=== PATIENT | male | born 1960 | race Caucasian/White ===

== ENCOUNTER 2019-07-10 13:51 | Inpatient (IN) | payer SELFPAY ==
[~2019-07-10] VITALS: Ht 162.6 cm; Wt 89.8 kg
[2019-07-10 15:29] LABS: HEMATOCRIT. 32.6 % (42.0-52.0); HEMOGLOBIN. 11.3 g/dL (14.0-18.0); MEAN CORPUSCULAR HEMOGLOBIN 33.9 pg (28.0-32.0); MEAN CORPUSCULAR VOLUME 97.7 fL (80.0-94.0); MEAN PLATELET VOLUME 9.7 fl (7.4-10.4); PLATELET 86 x1000/uL (130-400); RED BLOOD CELL COUNT 3.34 mill/uL (4.7-6.1); RED CELL DISTRIBUTION WIDTH 15.6 % (11.6-14.6)
[2019-07-10 15:30] LABS: INR 1.2; PROTHROMBIN TIME 12.7 sec (9.6-11.0)
[2019-07-10 15:34] LABS: CHLORIDE 112 mEq/L (98-107)
[2019-07-10 15:38] LABS: ETHANOL BLOOD < 10 mg/dL
[2019-07-10 16:39] LABS: PLATELET ESTIMATE DECREASED
[2019-07-10 17:19] LABS: CLARITY URINE CLEAR (CLEAR); COLOR URINE DARK YELLOW (YELLOW); KETONES URINE TRACE (NEGATIVE); LEUKOCYTE ESTERASE URINE TRACE (NEGATIVE); NITRITE URINE POSITIVE (NEGATIVE); OCCULT BLOOD URINE TRACE (NEGATIVE); PH URINE 5.5 (4.5-8.0); PROTEIN URINE TRACE (NEGATIVE); SPECIFIC GRAVITY URINE 1.032 (1.005-1.030)
[2019-07-10 17:29] LABS: *AMPHETAMINES SCREEN URINE NEGATIVE (NEGATIVE); *BARBITURATES SCREEN URINE NEGATIVE (NEGATIVE)
[2019-07-10 17:30] LABS: *BENZODIAZEPINES SCREEN URINE NEGATIVE (NEGATIVE); *COCAINE SCREEN URINE NEGATIVE (NEGATIVE); CANNABINOID URINE SCREEN NEGATIVE (NEGATIVE); METHADONE URINE SCREEN NEGATIVE (NEGATIVE); OPIATES URINE SCREEN NEGATIVE (NEGATIVE); PHENCYCLIDINE URINE SCREEN NEGATIVE (NEGATIVE)
[2019-07-10] MEDS ORDERED: LEVOFLOXACIN 750MG PREMIX 150 ML IV SCH (18:15)
[2019-07-10] MEDS ORDERED: SODIUM CHLORIDE 0.9% 1000ML BAG (SEPSIS BOLUS) IV NR (18:15)
[2019-07-10 22:00] VITALS: BP_SYST 157; BP_SYST 162; BP_DIAS 51
[2019-07-10] MEDS ORDERED: LORAZEPAM 2MG/ML CPJ IV PRN (23:45)
[2019-07-11] VITALS: BP 119/69
[2019-07-11] MEDS: CEFTRIAXONE 1 G PREMIX 50 ML IV SCH (02:04)
[2019-07-11 04:00] VITALS: BP 100/51
[2019-07-11 07:05] LABS: HEMATOCRIT. 28.5 % (42.0-52.0); HEMOGLOBIN. 9.9 g/dL (14.0-18.0); MEAN CORPUSCULAR HEMOGLOBIN 34.1 pg (28.0-32.0); MEAN CORPUSCULAR VOLUME 98.3 fL (80.0-94.0); MEAN PLATELET VOLUME 9.7 fl (7.4-10.4); PLATELET 67 x1000/uL (130-400); RED CELL DISTRIBUTION WIDTH 15.5 % (11.6-14.6)
[2019-07-11 07:26] LABS: CHLORIDE 115 mEq/L (98-107)
[2019-07-11 08:00] VITALS: BP 115/61
[2019-07-11] MEDS: SPIRONOLACTONE 50MG TABLET PO SCH (08:45)
[2019-07-11] MEDS: LACTULOSE 20G/30ML UDC PO SCH ×2 (08:45→17:20)
[2019-07-11] MEDS: MULTIVITAMINS,THER W-MINERALS TABLET PO SCH (08:45)
[2019-07-11] MEDS: FUROSEMIDE 40MG TABLET PO SCH (08:45)
[2019-07-11] MEDS: THIAMINE HCL 100MG TABLET PO SCH (08:45)
[2019-07-11] MEDS: FOLIC ACID 1MG TABLET PO SCH (08:45)
[2019-07-11 12:00] VITALS: BP 103/50
[2019-07-11 12:34] LABS: HEPATITIS B SURFACE ANTIGEN NEGATIVE
[2019-07-11 13:04] LABS: HEPATITIS A AB IGM NEGATIVE (NEGATIVE)
[2019-07-11] MEDS ORDERED: SODIUM BICARBONATE 4% (2.4MEQ) 5ML VIAL IV ONE (14:05)
[2019-07-11] MEDS ORDERED: LIDOCAINE HCL 1% 20ML VIAL (Pyxis) INJ ONE (14:05)
[2019-07-11 16:00] VITALS: BP 116/61
[2019-07-11 20:00] VITALS: BP 119/61
[2019-07-11] MEDS: LEVETIRACETAM 500MG TABLET PO SCH (20:41)
[2019-07-12] VITALS: BP 113/65
[2019-07-12] MEDS: CEFTRIAXONE 1 G PREMIX 50 ML IV SCH (01:58)
[2019-07-12 04:00] VITALS: BP 106/59
[2019-07-12 05:16] LABS: PLATELET ESTIMATE SLIGHTL
[2019-07-12 06:38] LABS: BASOPHILS % 1.4 % (0.0-2.0); EOSINOPHILS % 4.5 % (0.0-5.0); HEMATOCRIT. 29.1 % (42.0-52.0); HEMOGLOBIN. 10.1 g/dL (14.0-18.0); LYMPHOCYTES % 22.7 % (20.0-50.0); MEAN CORPUSCULAR VOLUME 97.7 fL (80.0-94.0); MEAN PLATELET VOLUME 9.5 fl (7.4-10.4); MONOCYTES % 13.3 % (2.0-8.0); NEUTROPHILS % 58.1 % (40.0-76.0); PLATELET 69 x1000/uL (130-400); RED BLOOD CELL COUNT 2.98 mill/uL (4.7-6.1); RED CELL DISTRIBUTION WIDTH 14.9 % (11.6-14.6)
[2019-07-12 06:57] LABS: CHLORIDE 111 mEq/L (98-107)
[2019-07-12 08:00] VITALS: BP 119/57
[2019-07-12] MEDS: THIAMINE HCL 100MG TABLET PO SCH (08:40)
[2019-07-12] MEDS: SPIRONOLACTONE 50MG TABLET PO SCH (08:40)
[2019-07-12] MEDS: FOLIC ACID 1MG TABLET PO SCH (08:40)
[2019-07-12] MEDS: LACTULOSE 20G/30ML UDC PO SCH ×2 (08:40→16:13)
[2019-07-12] MEDS: MULTIVITAMINS,THER W-MINERALS TABLET PO SCH (08:40)
[2019-07-12] MEDS: FUROSEMIDE 40MG TABLET PO SCH (08:40)
[2019-07-12] MEDS: LEVETIRACETAM 500MG TABLET PO SCH (08:41)
[2019-07-12 12:06] VITALS: BP 115/59
[2019-07-12 12:55] VITALS: BP 115/59
[2019-07-12] MEDS ORDERED: LEVO500T2 MT (14:46)
== END 2019-07-12 17:10 | disposition home or self-care (01) | DRG 53 ==
LOC: ER 13:51 → 5WST 18:12 → ENRESERV 20:42
PROVIDERS: ADMIT Internal Medicine; ATTEND Internal Medicine
PROC: 0W9G3ZZ Drainage of Peritoneal Cavity, Percutaneous Approach (ICD-10-PCS; principal; 2019-07-11)
DX: G40.909 Epilepsy, unspecified, not intractable, without status epilepticus (principal); E43 Unspecified severe protein-calorie malnutrition; D69.6 Thrombocytopenia, unspecified; E87.8 Other disorders of electrolyte and fluid balance, not elsewhere classified; R18.8 Other ascites; K74.60 Unspecified cirrhosis of liver; D64.9 Anemia, unspecified; N39.0 Urinary tract infection, site not specified; Z68.34 Body mass index [BMI] 34.0-34.9, adult
CPT/HCPCS: 36415; 49083; 76700; 80048; 80076; 80305; 80320; 81003; 82140; 82962; 83605; 84145; 85025; 86705; 86709; 86803; 87340; 93005; 96365; 99285; J0696; J1956; J3490; G0480

== ENCOUNTER 2019-08-02 14:01 | Emergency (ER) | payer MEDICAID, OTHER ==
[~2019-08-02] VITALS: Ht 157.5 cm; Wt 75.0 kg
[~2019-08-02 14:01] MED LIST: LEVO500T2 MT
[2019-08-02 14:10] VITALS: BP 136/56
== END 2019-08-02 15:19 | disposition home or self-care (01) ==
LOC: ER 14:16
DX: E11.9 Type 2 diabetes mellitus without complications (principal); K76.9 Liver disease, unspecified
CPT/HCPCS: 99281

== ENCOUNTER 2019-09-11 10:59 | Emergency (ER) | payer MEDICAID ==
[~2019-09-11] VITALS: Ht 167.6 cm; Wt 89.0 kg
[2019-09-11 13:10] LABS: HEMATOCRIT. 29.3 % (42.0-52.0); HEMOGLOBIN. 10.4 g/dL (14.0-18.0); MEAN CORPUSCULAR HEMOGLOBIN 35.1 pg (28.0-32.0); MEAN CORPUSCULAR VOLUME 98.5 fL (80.0-94.0); MEAN PLATELET VOLUME 9.6 fl (7.4-10.4); PLATELET 84 x1000/uL (130-400); RED BLOOD CELL COUNT 2.97 mill/uL (4.7-6.1)
[2019-09-11 13:12] LABS: CHLORIDE 113 mEq/L (98-107)
[2019-09-11 13:17] LABS: ETHANOL BLOOD < 10 mg/dL
[2019-09-11 13:25] LABS: INR 1.2; PROTHROMBIN TIME 12.8 sec (9.6-11.0)
[2019-09-11] MEDS ORDERED: LIDOCAINE HCL 1% 20ML VIAL (Pyxis) INJ ONE (13:44)
[2019-09-11] MEDS ORDERED: SODIUM BICARBONATE 4% (2.4MEQ) 5ML VIAL IV ONE (13:44)
[2019-09-11 13:48] LABS: PLATELET ESTIMATE DECREASED
[2019-09-11 15:05] VITALS: BP 105/80
== END 2019-09-11 15:28 | disposition home or self-care (01) ==
LOC: ER 10:59
DX: R18.8 Other ascites (principal); K74.60 Unspecified cirrhosis of liver; E11.9 Type 2 diabetes mellitus without complications; I10 Essential (primary) hypertension
CPT/HCPCS: 36415; 49083; 80053; 80320; 85025; 85610; 99285; J3490; Z7610; G0480

== ENCOUNTER 2019-09-25 07:26 | Emergency (ER) | payer MEDICAID ==
[~2019-09-25] VITALS: Ht 162.6 cm; Wt 86.0 kg
[2019-09-25 08:08] LABS: HEMATOCRIT. 30.5 % (42.0-52.0); HEMOGLOBIN. 10.7 g/dL (14.0-18.0); MEAN CORPUSCULAR HEMOGLOBIN 34.7 pg (28.0-32.0); MEAN CORPUSCULAR VOLUME 99.1 fL (80.0-94.0); MEAN PLATELET VOLUME 9.5 fl (7.4-10.4); PLATELET 81 x1000/uL (130-400); RED BLOOD CELL COUNT 3.07 mill/uL (4.7-6.1); RED CELL DISTRIBUTION WIDTH 14.8 % (11.6-14.6)
[2019-09-25 08:17] LABS: INR 1.3; PARTIAL THROMBOPLASTIN TIME 28.9 sec (23.4-31.0); PROTHROMBIN TIME 13.6 sec (9.6-11.0)
[2019-09-25 08:44] LABS: PLATELET ESTIMATE DECREASED
[2019-09-25] MEDS ORDERED: SODIUM BICARBONATE 4% (2.4MEQ) 5ML VIAL IV ONE (09:06)
[2019-09-25] MEDS ORDERED: LIDOCAINE HCL 1% 20ML VIAL (Pyxis) INJ ONE (09:06)
[2019-09-25 10:14] VITALS: BP 103/63
== END 2019-09-25 10:41 | disposition home or self-care (01) ==
LOC: ER 07:26
DX: R10.9 Unspecified abdominal pain (principal); D64.9 Anemia, unspecified; E11.9 Type 2 diabetes mellitus without complications; I10 Essential (primary) hypertension
CPT/HCPCS: 36415; 49083; 85025; 85610; 85730; 99284; J3490; Z7610

== ENCOUNTER 2019-10-04 16:14 | Emergency (ER) | payer MEDICAID ==
[~2019-10-04] VITALS: Ht 167.6 cm; Wt 90.0 kg
[2019-10-04 18:45] VITALS: BP 119/84
== END 2019-10-04 18:50 | disposition home or self-care (01) ==
LOC: ER 16:14
DX: R18.8 Other ascites (principal); E11.9 Type 2 diabetes mellitus without complications
CPT/HCPCS: 99281

== ENCOUNTER 2019-10-05 06:30 | Emergency (ER) | payer MEDICAID ==
[~2019-10-05] VITALS: Ht 162.6 cm; Wt 87.0 kg
[2019-10-05 07:59] LABS: HEMATOCRIT. 29.8 % (42.0-52.0); HEMOGLOBIN. 10.5 g/dL (14.0-18.0); MEAN CORPUSCULAR HEMOGLOBIN 34.6 pg (28.0-32.0); MEAN CORPUSCULAR VOLUME 98.7 fL (80.0-94.0); MEAN PLATELET VOLUME 8.9 fl (7.4-10.4); PLATELET 86 x1000/uL (130-400); RED BLOOD CELL COUNT 3.02 mill/uL (4.7-6.1); RED CELL DISTRIBUTION WIDTH 14.7 % (11.6-14.6)
[2019-10-05 08:01] LABS: CHLORIDE 108 mEq/L (98-107)
[2019-10-05 08:23] LABS: INR 1.3; PROTHROMBIN TIME 13.7 sec (9.6-11.0)
[2019-10-05] MEDS ORDERED: LIDOCAINE HCL 1% 20ML VIAL (Pyxis) INJ ONE (08:56)
[2019-10-05] MEDS ORDERED: SODIUM BICARBONATE 4% (2.4MEQ) 5ML VIAL IV ONE (08:56)
[2019-10-05 09:04] LABS: PLATELET ESTIMATE DECREASED
[2019-10-05 11:45] VITALS: BP 105/72
== END 2019-10-05 12:11 | disposition home or self-care (01) ==
LOC: ER 06:36
DX: R18.8 Other ascites (principal); K76.9 Liver disease, unspecified; I10 Essential (primary) hypertension
CPT/HCPCS: 36415; 49083; 80053; 83690; 85025; 85610; 87070; 87075; 87205; 89050; 99285; J3490; Z7610

== ENCOUNTER 2019-10-26 16:47 | Inpatient (IN) | payer MEDICAID ==
[~2019-10-26] VITALS: Ht 162.6 cm; Wt 73.9 kg
[2019-10-26 18:48] LABS: CLARITY URINE CLEAR (CLEAR); COLOR URINE DK YELLOW (YELLOW); KETONES URINE NEGATIVE (NEGATIVE); LEUKOCYTE ESTERASE URINE NEGATIVE (NEGATIVE); NITRITE URINE NEGATIVE (NEGATIVE); OCCULT BLOOD URINE NEGATIVE (NEGATIVE); PH URINE 5.5 (4.5-8.0); PROTEIN URINE NEGATIVE (NEGATIVE); SPECIFIC GRAVITY URINE 1.012 (1.005-1.030)
[2019-10-26 18:50] LABS: HEMATOCRIT. 28.9 % (42.0-52.0); HEMOGLOBIN. 10.2 g/dL (14.0-18.0); MEAN CORPUSCULAR HEMOGLOBIN 34.2 pg (28.0-32.0); MEAN CORPUSCULAR VOLUME 96.9 fL (80.0-94.0); MEAN PLATELET VOLUME 9.4 fl (7.4-10.4); PLATELET 88 x1000/uL (130-400); RED BLOOD CELL COUNT 2.99 mill/uL (4.7-6.1); RED CELL DISTRIBUTION WIDTH 15.3 % (11.6-14.6)
[2019-10-26 18:52] LABS: CHLORIDE 104 mEq/L (98-107)
[2019-10-26 18:55] LABS: INR 1.2
[2019-10-26 18:56] LABS: ETHANOL BLOOD < 10 mg/dL
[2019-10-26 19:01] LABS: CREATINE KINASE 79 IU/L (39-308)
[2019-10-26 19:04] LABS: *AMPHETAMINES SCREEN URINE NEGATIVE (NEGATIVE); *BARBITURATES SCREEN URINE NEGATIVE (NEGATIVE)
[2019-10-26 19:05] LABS: *BENZODIAZEPINES SCREEN URINE NEGATIVE (NEGATIVE); *COCAINE SCREEN URINE NEGATIVE (NEGATIVE); METHADONE URINE SCREEN NEGATIVE (NEGATIVE); OPIATES URINE SCREEN NEGATIVE (NEGATIVE); PHENCYCLIDINE URINE SCREEN NEGATIVE (NEGATIVE)
[2019-10-26 19:06] LABS: CANNABINOID URINE SCREEN NEGATIVE (NEGATIVE)
[2019-10-26] MEDS ORDERED: POTASSIUM CHLORIDE INJ 40 MEQ in DEXT 5% WATER 250 ML IV ONE (20:00)
[2019-10-26 20:10] LABS: PLATELET ESTIMATE MARKEDLY DECREASED
[2019-10-27] MEDS ORDERED: LACTULOSE 20G/30ML UDC PO NR (01:30)
[2019-10-27] MEDS ORDERED: MAGNESIUM/ALUMINUM HYDROXIDE/SIMETHICONE 30ML UDC PO PRN (08:30)
[2019-10-27] MEDS ORDERED: DOCUSATE SODIUM 100MG CAPSULE PO PRN (08:30)
[2019-10-27] MEDS ORDERED: ONDANSETRON HCL 4MG/2ML INJ IV PRN (08:30)
[2019-10-27] MEDS ORDERED: CLONIDINE 0.1MG TABLET PO PRN (08:30)
[2019-10-27] MEDS: PANTOPRAZOLE SODIUM 40 MG/VIAL IV SCH (10:02)
[2019-10-27] MEDS ORDERED: SODIUM BICARBONATE 4% (2.4MEQ) 5ML VIAL IV ONE (13:03)
[2019-10-27] MEDS ORDERED: LIDOCAINE HCL 1% 20ML VIAL (Pyxis) INJ ONE (13:03)
[2019-10-27 15:04] VITALS: BP 119/65
[2019-10-27] MEDS: LACTULOSE 20G/30ML UDC PO SCH ×2 (15:53→21:18)
[2019-10-27 16:00] VITALS: BP 117/66
[2019-10-27 20:00] VITALS: BP 109/57
[2019-10-28] VITALS (7 sets, daily range): BP systolic 100–111; BP diastolic 56–72
[2019-10-28] MEDS: LACTULOSE 20G/30ML UDC PO SCH ×3 (06:00→20:19)
[2019-10-28 06:56] LABS: CHLORIDE 106 mEq/L (98-107)
[2019-10-28 07:06] LABS: AMYLASE 38 IU/L (25-115)
[2019-10-28 07:09] LABS: BASOPHILS % 1.1 % (0.0-2.0); EOSINOPHILS % 5.6 % (0.0-5.0); HEMOGLOBIN. 10.4 g/dL (14.0-18.0); LYMPHOCYTES % 20.4 % (20.0-50.0); MEAN CORPUSCULAR HEMOGLOBIN 34.5 pg (28.0-32.0); MEAN CORPUSCULAR VOLUME 96.6 fL (80.0-94.0); MEAN PLATELET VOLUME 9.7 fl (7.4-10.4); MONOCYTES % 14.6 % (2.0-8.0); NEUTROPHILS % 58.3 % (40.0-76.0); PLATELET 81 x1000/uL (130-400); RED BLOOD CELL COUNT 3.01 mill/uL (4.7-6.1); RED CELL DISTRIBUTION WIDTH 15.2 % (11.6-14.6)
[2019-10-28 07:11] LABS: PHOSPHORUS 3.3 mg/dL (2.5-4.9)
[2019-10-28 07:12] LABS: LDL CHOLESTEROL 56 mg/dL (5-100)
[2019-10-28 07:13] LABS: HDL CHOLESTEROL 30 mg/dL (40-59)
[2019-10-28] MEDS: PANTOPRAZOLE SODIUM 40 MG/VIAL IV SCH (08:00)
[2019-10-28] MEDS ORDERED: POTASSIUM CHLORIDE INJ 40 MEQ in DEXT 5% WATER 250 ML IV SCH (12:00)
[2019-10-29 03:50] VITALS: BP 96/54
[2019-10-29 05:08] LABS: CHLORIDE 105 mEq/L (98-107)
[2019-10-29 05:17] LABS: PHOSPHORUS 3.3 mg/dL (2.5-4.9)
[2019-10-29] MEDS: LACTULOSE 20G/30ML UDC PO SCH ×2 (05:59→15:06)
[2019-10-29 06:35] LABS: HEMATOCRIT. 29.5 % (42.0-52.0); HEMOGLOBIN. 10.5 g/dL (14.0-18.0); MEAN CORPUSCULAR HEMOGLOBIN 34.4 pg (28.0-32.0); MEAN CORPUSCULAR VOLUME 96.8 fL (80.0-94.0); MEAN PLATELET VOLUME 10.2 fl (7.4-10.4); PLATELET 83 x1000/uL (130-400); RED BLOOD CELL COUNT 3.04 mill/uL (4.7-6.1)
[2019-10-29 08:00] VITALS: BP 103/64
[2019-10-29] MEDS: PANTOPRAZOLE SODIUM 40 MG/VIAL IV SCH (08:52)
[2019-10-29] MEDS ORDERED: RIFAXIMIN 550 MG TABLET PO SCH (09:00)
[2019-10-29 10:00] VITALS: BP 86/48
[2019-10-29 11:03] LABS: PLATELET ESTIMATE DECREASED
[2019-10-29] MEDS ORDERED: LACT10SO MT (11:13)
[2019-10-29 12:00] VITALS: BP 99/64
[2019-10-29 14:42] VITALS: BP 105/61
[2019-10-29 16:00] VITALS: BP 115/71
== END 2019-10-29 18:05 | disposition home or self-care (01) | DRG 279 ==
LOC: ER 16:47 → MICUSO 22:04 → EDBEDREQ 22:10 → EDBEDREQTM 22:10 → 5EST 10-27 15:00
PROVIDERS: ADMIT Internal Medicine; ATTEND Internal Medicine
PROC: 0W9G3ZZ Drainage of Peritoneal Cavity, Percutaneous Approach (ICD-10-PCS; principal; 2019-10-27)
DX: K72.90 Hepatic failure, unspecified without coma (principal); E43 Unspecified severe protein-calorie malnutrition; D64.9 Anemia, unspecified; K70.31 Alcoholic cirrhosis of liver with ascites; G40.909 Epilepsy, unspecified, not intractable, without status epilepticus; D69.6 Thrombocytopenia, unspecified; K82.8 Other specified diseases of gallbladder; E87.6 Hypokalemia; I10 Essential (primary) hypertension; R74.0 Nonspecific elevation of levels of transaminase and lactic acid dehydrogenase [LDH]; R16.1 Splenomegaly, not elsewhere classified; N39.0 Urinary tract infection, site not specified; Z68.28 Body mass index [BMI] 28.0-28.9, adult
CPT/HCPCS: 36415; 49083; 71045; 76700; 80048; 80053; 80061; 80076; 80305; 80307; 80320; 80329; 81003; 82140; 82150; 82247; 82248; 82550; 82962; 83735; 83880; 84100; 84443; 84484; 85025; 93005; 93970; 97161; 99285; C9113; J3480; J3490; J7060; G0480

== ENCOUNTER 2019-11-02 00:30 | Inpatient (IN) | payer MEDICAID ==
[~2019-11-02] VITALS: Ht 170.2 cm; Wt 65.3 kg
[~2019-11-02 00:30] MED LIST changes: +LACT10SO MT; -LEVO500T2 MT
[2019-11-02] MEDS ORDERED: LACTULOSE 20G/30ML UDC PO ONE (01:00)
[2019-11-02 01:15] LABS: HEMOGLOBIN. 11.2 g/dL (14.0-18.0); MEAN CORPUSCULAR HEMOGLOBIN 33.4 pg (28.0-32.0); MEAN CORPUSCULAR VOLUME 95.9 fL (80.0-94.0); PLATELET 111 x1000/uL (130-400); RED BLOOD CELL COUNT 3.34 mill/uL (4.7-6.1); RED CELL DISTRIBUTION WIDTH 15.3 % (11.6-14.6)
[2019-11-02 01:19] LABS: CHLORIDE 109 mEq/L (98-107)
[2019-11-02 02:40] LABS: INR 1.3; PROTHROMBIN TIME 13.1 sec (9.6-11.0)
[2019-11-02 04:01] LABS: PLATELET ESTIMATE SLIGHTLY DECREASED
[2019-11-02] MEDS ORDERED: ACETAMINOPHEN 325MG TABLET PO PRN (08:30)
[2019-11-02] MEDS ORDERED: CEFTRIAXONE 1 G PREMIX 50 ML IV SCH (08:30)
[2019-11-02] MEDS ORDERED: ONDANSETRON HCL 4MG/2ML INJ IV PRN (08:30)
[2019-11-02 09:11] VITALS: BP 143/69
[2019-11-02 09:45] VITALS: BP 143/69
[2019-11-02] MEDS: LACTULOSE 300 ML in WATER FOR IRRIGATION,STERILE 700 ML IR NR ×3 (10:09→12:40)
[2019-11-02] MEDS: RIFAXIMIN 550 MG TABLET PO SCH ×2 (10:10→21:45)
[2019-11-02] MEDS ORDERED: LACTULOSE 20G/30ML UDC ONE (10:13)
[2019-11-02] MEDS: CEFTRIAXONE 1,000 MG in DEXTROSE 5% WATER 50 ML IV SCH (10:55)
[2019-11-02 12:00] VITALS: BP 113/70
[2019-11-02] MEDS: LACTULOSE 20G/30ML UDC PO SCH ×2 (13:02→21:46)
[2019-11-02] MEDS ORDERED: LORAZEPAM 2MG/ML CPJ IV PRN (13:30)
[2019-11-02] MEDS: SPIRONOLACTONE 50MG TABLET PO SCH (14:42)
[2019-11-02] MEDS: FUROSEMIDE 40MG/4ML VIAL IVP SCH (14:42)
[2019-11-02 16:00] VITALS: BP 92/60
[2019-11-02 20:00] VITALS: BP 95/58
[2019-11-03] VITALS (7 sets, daily range): BP systolic 96–126; BP diastolic 45–73
[2019-11-03] MEDS: LACTULOSE 20G/30ML UDC PO SCH ×3 (05:52→21:58)
[2019-11-03 06:22] LABS: HEMATOCRIT. 27.8 % (42.0-52.0); HEMOGLOBIN. 9.8 g/dL (14.0-18.0); MEAN CORPUSCULAR VOLUME 96.6 fL (80.0-94.0); MEAN PLATELET VOLUME 9.9 fl (7.4-10.4); PLATELET 81 x1000/uL (130-400); RED BLOOD CELL COUNT 2.88 mill/uL (4.7-6.1); RED CELL DISTRIBUTION WIDTH 15.4 % (11.6-14.6)
[2019-11-03 06:35] LABS: CHLORIDE 115 mEq/L (98-107)
[2019-11-03] MEDS: FUROSEMIDE 40MG/4ML VIAL IVP SCH (08:07)
[2019-11-03] MEDS: RIFAXIMIN 550 MG TABLET PO SCH ×2 (08:07→21:55)
[2019-11-03] MEDS: CEFTRIAXONE 1,000 MG in DEXTROSE 5% WATER 50 ML IV SCH (08:08)
[2019-11-03] MEDS: SPIRONOLACTONE 50MG TABLET PO SCH (08:08)
[2019-11-03 11:56] LABS: PLATELET ESTIMATE DECREASED
[2019-11-03] MEDS ORDERED: FURO-151 MT (12:16)
[2019-11-03] MEDS ORDERED: LACT10SO7 PO (12:16)
[2019-11-03] MEDS ORDERED: SPIR50TA5 MT (12:16)
[2019-11-03] MEDS ORDERED: SODIUM BICARBONATE 4% (2.4MEQ) 5ML VIAL IV ONE (13:19)
[2019-11-03] MEDS ORDERED: LIDOCAINE HCL 1% 20ML VIAL (Pyxis) INJ ONE (13:19)
[2019-11-04 04:34] VITALS: BP 114/69
[2019-11-04] MEDS: LACTULOSE 20G/30ML UDC PO SCH ×3 (05:22→21:55)
[2019-11-04 08:00] VITALS: BP 100/61
[2019-11-04] MEDS: RIFAXIMIN 550 MG TABLET PO SCH ×2 (08:55→20:12)
[2019-11-04] MEDS: FUROSEMIDE 40MG/4ML VIAL IVP SCH (08:55)
[2019-11-04] MEDS: CEFTRIAXONE 1,000 MG in DEXTROSE 5% WATER 50 ML IV SCH (08:55)
[2019-11-04] MEDS: SPIRONOLACTONE 50MG TABLET PO SCH (08:56)
[2019-11-04 12:00] VITALS: BP 112/75
[2019-11-04] MEDS ORDERED: CEPH-569 MT (12:10)
[2019-11-04 16:00] VITALS: BP 108/67
[2019-11-04 16:11] VITALS: BP_SYST 108; BP_SYST 110; BP_DIAS 67
[2019-11-04 20:44] VITALS: BP 112/64
[2019-11-05 00:36] VITALS: BP 91/55
[2019-11-05 04:00] VITALS: BP 105/59
[2019-11-05] MEDS: LACTULOSE 20G/30ML UDC PO SCH (06:06)
[2019-11-05 08:00] VITALS: BP 98/56
[2019-11-05] MEDS: SPIRONOLACTONE 50MG TABLET PO SCH (09:00)
[2019-11-05] MEDS: FUROSEMIDE 40MG/4ML VIAL IVP SCH (09:00)
[2019-11-05] MEDS: RIFAXIMIN 550 MG TABLET PO SCH (10:09)
[2019-11-05] MEDS: CEFTRIAXONE 1,000 MG in DEXTROSE 5% WATER 50 ML IV SCH (10:09)
[2019-11-05 12:00] VITALS: BP 110/67
== END 2019-11-05 14:05 | disposition home or self-care (01) | DRG 720 ==
LOC: ER 00:30 → 6WST 01:24 → EDBEDREQTM 01:29 → EDBEDREQ 01:29 → ENRESERV 07:28
PROVIDERS: ADMIT Internal Medicine; ATTEND Internal Medicine
PROC: 0W9G3ZZ Drainage of Peritoneal Cavity, Percutaneous Approach (ICD-10-PCS; principal; 2019-11-03)
DX: A41.9 Sepsis, unspecified organism (principal); K72.00 Acute and subacute hepatic failure without coma; E43 Unspecified severe protein-calorie malnutrition; D64.9 Anemia, unspecified; D69.6 Thrombocytopenia, unspecified; E87.8 Other disorders of electrolyte and fluid balance, not elsewhere classified; K74.60 Unspecified cirrhosis of liver; G93.41 Metabolic encephalopathy; R18.8 Other ascites; E72.20 Disorder of urea cycle metabolism, unspecified; F10.10 Alcohol abuse, uncomplicated; Y90.9 Presence of alcohol in blood, level not specified; Z79.84 Long term (current) use of oral hypoglycemic drugs; Z79.899 Other long term (current) drug therapy; Z68.22 Body mass index [BMI] 22.0-22.9, adult
CPT/HCPCS: 36415; 49083; 80053; 82140; 85025; 97162; 99285; J0696; J1940; J2060; J3490; J7060

== ENCOUNTER 2020-02-14 06:35 | Emergency (ER) | payer MEDICAID ==
[~2020-02-14] VITALS: Ht 162.6 cm; Wt 82.0 kg
[~2020-02-14 06:35] MED LIST changes: +CEPH-569 MT; +FURO-151 MT; -LACT10SO MT; +LACT10SO7 PO; +SPIR50TA5 MT
[2020-02-14 08:27] LABS: HEMATOCRIT. 27.1 % (42.0-52.0); HEMOGLOBIN. 9.5 g/dL (14.0-18.0); MEAN CORPUSCULAR HEMOGLOBIN 34.8 pg (28.0-32.0); MEAN CORPUSCULAR VOLUME 99.1 fL (80.0-94.0); MEAN PLATELET VOLUME 10.1 fl (7.4-10.4); PLATELET 87 x1000/uL (130-400); RED BLOOD CELL COUNT 2.73 mill/uL (4.7-6.1); RED CELL DISTRIBUTION WIDTH 16.6 % (11.6-14.6)
[2020-02-14 08:34] LABS: CHLORIDE 111 mEq/L (98-107)
[2020-02-14 08:38] LABS: INR 1.2; PARTIAL THROMBOPLASTIN TIME 28.8 sec (23.4-31.0); PROTHROMBIN TIME 12.1 sec (9.6-11.0)
[2020-02-14] MEDS ORDERED: SODIUM BICARBONATE 4% (2.4MEQ) 5ML VIAL IV ONE (09:56)
[2020-02-14] MEDS ORDERED: LIDOCAINE HCL 1% 20ML VIAL (Pyxis) INJ ONE (09:56)
[2020-02-14 10:39] LABS: ATYPICAL LYMPHOCYTES 1; PLATELET ESTIMATE DECREASED
[2020-02-14 12:51] VITALS: BP 97/56
== END 2020-02-14 12:59 | disposition home or self-care (01) ==
LOC: ER 06:41
DX: R18.8 Other ascites (principal); E11.9 Type 2 diabetes mellitus without complications; Z98.890 Other specified postprocedural states; Z79.899 Other long term (current) drug therapy
CPT/HCPCS: 36415; 49083; 80053; 85025; 85610; 85730; 86850; 86900; 86901; 87426; 93005; 99285; J3490; Z7610

== ENCOUNTER 2020-02-29 14:59 | Emergency (ER) | payer MEDICAID ==
[~2020-02-29] VITALS: Ht 162.6 cm; Wt 71.0 kg
[2020-02-29 18:06] VITALS: BP 137/72
[2020-03-14] MEDS ORDERED: LEVE500T19 PO (15:50)
[2020-03-14] MEDS ORDERED: METF-414 MT (15:50)
== END 2020-02-29 18:10 | disposition home or self-care (01) ==
LOC: ER 14:59
DX: K70.31 Alcoholic cirrhosis of liver with ascites (principal); E11.9 Type 2 diabetes mellitus without complications; I10 Essential (primary) hypertension; G89.29 Other chronic pain; R10.84 Generalized abdominal pain
CPT/HCPCS: 93005; 99283

== ENCOUNTER 2020-03-01 08:52 | Emergency (ER) | payer MEDICAID ==
[~2020-03-01] VITALS: Ht 162.6 cm; Wt 82.0 kg
[2020-03-01 10:33] LABS: BASOPHILS % 0.8 % (0.0-2.0); EOSINOPHILS % 5.3 % (0.0-5.0); HEMATOCRIT. 29.2 % (42.0-52.0); HEMOGLOBIN. 10.4 g/dL (14.0-18.0); LYMPHOCYTES % 14.1 % (20.0-50.0); MEAN CORPUSCULAR HEMOGLOBIN 34.6 pg (28.0-32.0); MEAN CORPUSCULAR VOLUME 97.4 fL (80.0-94.0); MEAN PLATELET VOLUME 8.7 fl (7.4-10.4); MONOCYTES % 13.8 % (2.0-8.0); PLATELET 92 x1000/uL (130-400); RED CELL DISTRIBUTION WIDTH 14.2 % (11.6-14.6)
[2020-03-01 10:38] LABS: CHLORIDE 111 mEq/L (98-107)
[2020-03-01 10:41] LABS: INR 1.1
[2020-03-01] MEDS ORDERED: LIDOCAINE HCL 1% 20ML VIAL (Pyxis) INJ ONE (13:21)
[2020-03-01] MEDS ORDERED: SODIUM BICARBONATE 4% (2.4MEQ) 5ML VIAL IV ONE (13:21)
[2020-03-01] MEDS ORDERED: POTASSIUM CHLORIDE 20MEQ TABLET SR PO ONE (13:45)
[2020-03-01 16:50] VITALS: BP 114/68
== END 2020-03-01 16:57 | disposition home or self-care (01) ==
LOC: ER 08:52
DX: R18.8 Other ascites (principal); R14.0 Abdominal distension (gaseous); R06.00 Dyspnea, unspecified; E11.9 Type 2 diabetes mellitus without complications; K74.60 Unspecified cirrhosis of liver; Z79.899 Other long term (current) drug therapy; Z20.828 Contact with and (suspected) exposure to other viral communicable diseases
CPT/HCPCS: 36415; 49083; 80053; 85025; 85610; 87070; 87205; 87426; 89050; 99285; J3490; Z7610

== ENCOUNTER 2020-05-16 16:30 | Emergency (ER) | payer MEDICAID ==
[~2020-05-16] VITALS: Ht 160 cm; Wt 73.0 kg
[~2020-05-16 16:30] MED LIST changes: -CEPH-569 MT; +LACT10SO7 MT; +LEVE500T19 PO; +METF-414 MT
[2020-05-16 18:36] LABS: HEMATOCRIT. 25.5 % (42.0-52.0); HEMOGLOBIN. 8.6 g/dL (14.0-18.0); MEAN CORPUSCULAR VOLUME 97.5 fL (80.0-94.0); MEAN PLATELET VOLUME 9.8 fl (7.4-10.4); PLATELET 51 x1000/uL (130-400); RED BLOOD CELL COUNT 2.62 mill/uL (4.7-6.1); RED CELL DISTRIBUTION WIDTH 17.1 % (11.6-14.6)
[2020-05-16 18:43] LABS: CHLORIDE 108 mEq/L (98-107)
[2020-05-16 19:34] LABS: PLATELET ESTIMATE MARKEDLY DECREASED
[2020-05-16] MEDS ORDERED: MORPHINE SULFATE 4 MG/ML CPJ (NOT FOR IM USE) IV STA (19:56)
[2020-05-16] MEDS ORDERED: ONDANSETRON HCL 4MG/2ML INJ IV STA (19:56)
[2020-05-17 00:38] VITALS: BP 125/70
== END 2020-05-17 00:40 | disposition home or self-care (01) ==
LOC: ER 16:30
DX: R14.0 Abdominal distension (gaseous) (principal); F10.229 Alcohol dependence with intoxication, unspecified; E11.9 Type 2 diabetes mellitus without complications; I10 Essential (primary) hypertension; F17.290 Nicotine dependence, other tobacco product, uncomplicated; Z79.899 Other long term (current) drug therapy
CPT/HCPCS: 36415; 80053; 85025; 87070; 87205; 89050; 93005; 96374; 96375; 99285; J2270; J2405

== ENCOUNTER 2020-05-17 03:00 | Emergency (ER) | payer MEDICAID ==
[~2020-05-17] VITALS: Ht 162.6 cm; Wt 78.0 kg
[2020-05-17 04:45] VITALS: BP 130/71
[2020-05-22] MEDS ORDERED: LEVO500T89 MT (17:28)
[2020-05-22] MEDS ORDERED: FURO-151 MT (17:28)
[2020-05-22] MEDS ORDERED: SPIR50TA5 MT (17:28)
== END 2020-05-17 04:55 | disposition home or self-care (01) ==
LOC: ER 03:00
DX: R68.89 Other general symptoms and signs (principal); F10.229 Alcohol dependence with intoxication, unspecified; Y90.0 Blood alcohol level of less than 20 mg/100 ml; E11.9 Type 2 diabetes mellitus without complications; I10 Essential (primary) hypertension; Z79.899 Other long term (current) drug therapy
CPT/HCPCS: 99281

== ENCOUNTER 2021-09-11 00:06 | Emergency (ER) | payer MEDICAID, OTHER ==
[~2021-09-11] VITALS: Ht 162.6 cm; Wt 79.0 kg
[~2021-09-11 00:06] MED LIST changes: +CLOT15CR27 TP; +ERGO2000 MT; +FOLI-43 MT; +LEVO500T89 MT; +PANT40TA51 MT; +RIFA550T PO; +SPIR100T5 MT
[2021-09-11 02:15] VITALS: BP 105/61
== END 2021-09-11 06:11 | disposition home or self-care (01) ==
LOC: ER 00:32
DX: Z48.01 Encounter for change or removal of surgical wound dressing (principal); R18.8 Other ascites; E11.9 Type 2 diabetes mellitus without complications; I10 Essential (primary) hypertension; K70.9 Alcoholic liver disease, unspecified
CPT/HCPCS: 99281

== ENCOUNTER 2021-09-11 12:10 | Emergency (ER) | payer OTHER ==
[~2021-09-11] VITALS: Ht 165.1 cm; Wt 105.0 kg
[2021-09-11 12:31] VITALS: BP 105/66
[2021-09-11 13:09] LABS: HEMATOCRIT. 28.8 % (42.0-52.0); MEAN CORPUSCULAR HEMOGLOBIN 32.8 pg (28.0-32.0); MEAN CORPUSCULAR VOLUME 94.2 fL (80.0-94.0); MEAN PLATELET VOLUME 8.5 fl (7.4-10.4); PLATELET 118 x1000/uL (130-400); RED BLOOD CELL COUNT 3.05 mill/uL (4.7-6.1); RED CELL DISTRIBUTION WIDTH 14.2 % (11.6-14.6)
[2021-09-11 13:16] LABS: CHLORIDE 106 mEq/L (98-107)
[2021-09-11 13:20] LABS: INR 1.1; PROTHROMBIN TIME 11.4 sec (9.6-11.0)
[2021-09-11 13:55] LABS: PLATELET ESTIMATE SLIGHTLY DECREASED
== END 2021-09-11 18:39 | disposition home or self-care (01) ==
LOC: ER 12:35
DX: T81.89XA Other complications of procedures, not elsewhere classified, initial encounter (principal); R18.8 Other ascites; D64.9 Anemia, unspecified; D69.6 Thrombocytopenia, unspecified; E11.9 Type 2 diabetes mellitus without complications; I10 Essential (primary) hypertension; K70.9 Alcoholic liver disease, unspecified; Z79.84 Long term (current) use of oral hypoglycemic drugs; Y83.8 Other surgical procedures as the cause of abnormal reaction of the patient, or of later complication, without mention of misadventure at the time of the procedure; Y92.018 Other place in single-family (private) house as the place of occurrence of the external cause
CPT/HCPCS: 36415; 80053; 85025; 99283